=== PATIENT | female | born 1965 | race Caucasian/White ===

== ENCOUNTER 2018-07-20 08:52 | Emergency (ER) | payer OTHER | END 2018-07-20 09:35 | disposition home or self-care (01) | LOC: BURERS 08:52 | DX: R11.0 Nausea (principal); T43.225A Adverse effect of selective serotonin reuptake inhibitors, initial encounter; E78.00 Pure hypercholesterolemia, unspecified; F32.9 Major depressive disorder, single episode, unspecified; F41.9 Anxiety disorder, unspecified; F17.210 Nicotine dependence, cigarettes, uncomplicated; Z79.899 Other long term (current) drug therapy | CPT/HCPCS: 99283 ==